=== PATIENT | female | born 1970 | race Two or more races ===

== ENCOUNTER 2017-07-05 12:50 | Emergency (ER) | payer OTHER ==
[~2017-07-05] VITALS: Ht 162.6 cm; Wt 113.4 kg
[~2017-07-05 12:50] MED LIST: ALPRAZOLAM0.5 MG PO; AMOXICILLIN500 MG ORAL; ATENOLOL25 MG ORAL; BACITRACIN15 GM TOPIC; FERROUS SULFAT325 MG ORAL; HYDROCHLOROTHIA25 MG PO; IBUPROFEN600 MG ORAL; LIPITOR20 MG ORAL; NORCO 5-325 TA1 EACH ORAL; PROZAC40 MG ORAL; TENORMIN25 MG PO; XANAX1 MG PO; ZESTRIL20 MG PO; ZOFRAN ODT4 MG ORAL
[2017-07-05] MEDS ORDERED: VITAMIN D1000 UNI1 ORAL (13:01)
[2017-07-05] MEDS ORDERED: NAPROSYN500 M1 ORAL (13:01)
[2017-07-05] MEDS ORDERED: Ketorolac 60mg Inj IM ONE (13:30)
--- NOTE | 2017-07-05 14:01 | Emergency Room Report ---
History of Present Illness General Chief Complaint: Lower Back Pain or Injury Source: Patient Present Illness HPI 46 YO Female presents to the ED C/O 08/16 in severity Low back pain that radiates down into the left leg. pt reports hx of herniated disk. pt states character of her pain is similar to previous exacerbations in the past. Denies trauma or fall. Denies Fevers, Chills, bruising, swelling, or erythema. Denies recent spinal procedure or hx of neoplastic disease. pt. reports she has had MRI in the past. 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 denies abdominal pain, denies hematuria, frequency or dysuria. Denies numbness tingling or loss of sensation or gross motor movements of the extremities, incontinence of bowel or bladder. Denies CP , Palpitations, LOC, AMS, dizziness, Changes in Vision, Sensation, paresthesias , or a sudden severe headache. Allergies: Coded Allergies: No Known Allergies (Unverified , 10/03/12) Patient History Past Medical History: see triage record Past Surgical History: none Pertinent Family History: none Last Menstrual Period: Three years ago Now: No Immunizations: UTD Reviewed Nursing Documentation: PMH: Agreed, PSxH: Agreed Nursing Documentation-PMH Hx Hypertension: Yes Hx Gastrointestinal Problems: Yes - gastritis Review of Systems All Other Systems: negative except mentioned in HPI Physical Exam Vital Signs Date Time Temp Pulse Resp B/P (MAP) Pulse Ox O2 Delivery O2 Flow Rate FiO2 07/05/17 12:56 98.4 95 16 120/77 97 Room Air Sp02 EP Interpretation: reviewed, normal General Appearance: no apparent distress, alert, GCS 15, non-toxic Head: normocephalic, atraumatic Eyes: bilateral eye normal inspection, bilateral eye PERRL ENT: hearing grossly normal, normal voice Neck: full range of motion Respiratory: lungs clear, normal breath sounds, speaking full sentences Cardiovascular #1: regular rate, rhythm Rectal: deferred Genitourinary: normal inspection, no CVA tenderness Musculoskeletal: back normal, gait/station normal, normal range of motion, tender - Left paraspinal , mainly gluteal ttp, no obvious deformities, no erythema, no masses. pain with straight leg raise. Neurologic: alert, oriented x3, responsive, motor strength/tone normal, sensory intact, speech normal Psychiatric: judgement/insight normal, memory normal, mood/affect normal Skin: normal color, no rash, warm/dry, well hydrated Medical Decision Making PA Attestation Dr. chris is my supervising Physician whom patient management has been discussed with. Diagnostic Impression: Primary Impression: Sciatica Qualified Codes: M54.32 - Sciatica, left side ER Course 46 YO Female presents to the ED C/O 08/16 in severity Low back pain that radiates down into the left leg. pt reports hx of herniated disk. pt states character of her pain is similar to previous exacerbations in the past. Denies trauma or fall. Denies Fevers, Chills, bruising, swelling, or erythema. Denies recent spinal procedure or hx of neoplastic disease. pt. reports she has had MRI in the past. 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 denies abdominal pain, denies hematuria, frequency or dysuria. Denies numbness tingling or loss of sensation or gross motor movements of the extremities, incontinence of bowel or bladder. Denies CP , Palpitations, LOC, AMS, dizziness, Changes in Vision, Sensation, paresthesias , or a sudden severe headache. Ddx considered but are not limited to Fracture, dislocation, contusion, epidural abscess, Sprain/Strain/Spasm Vital signs: are WNL, pt. is afebrile H&PE are most consistent with sciatica Pt. has pain with straight leg raise. ORDERS: X-ray not required at this time, no spinous process tenderness ED INTERVENTIONS: - Soma PO - IM Toradol Re-Evaluation: pt. states his pain has subsided with ED interventions DISCHARGE: At this time pt. is stable for d/c to home. Will provide printed patient care instructions, and any necessary prescriptions. Care plan and follow up instructions have been discussed with the patient prior to discharge. Last Vital Signs Date Time Temp Pulse Resp B/P (MAP) Pulse Ox O2 Delivery O2 Flow Rate FiO2 07/05/17 12:56 98.4 95 16 120/77 97 Room Air Disposition: HOME, SELF-CARE Condition: Stable Scripts Ibuprofen* (MOTRIN*) 600 Mg Tablet 600 MG ORAL THREE TIMES A DAY, #30 TAB 0 Refills Prov: Cynthia Moreno P.A. 07/05/17 Cyclobenzaprine Hcl* (FLEXERIL*) 10 Mg Tablet 10 MG ORAL THREE TIMES A DAY for 7 Days, #21 TAB Prov: Cynthia Moreno 07/05/17 Patient Instructions: Back Pain, Adult, Sciatica Additional Instructions: Take medications as directed. Follow up with a Primary Care Provider in 3-5 days, even if your symptoms have resolved. --Please review list of primary care clinics, if you do not already have a primary care provider Return sooner to ED if new symptoms occur, or current symptoms become worse. Do not drink alcohol, drive, or operate heavy machinery while taking muscle relaxers as this may cause drowsiness. - Please note that this Emergency Department Report was dictated using [employer] processor technology software, occasionally this can lead to erroneous entry secondary to interpretation by the dictation equipment. Cynthia Moreno Jul 05, 2017 14:01
[2017-07-05] MEDS ORDERED: CYCLOBENZAPRINE10 MG ORAL (14:02)
[2017-07-05] MEDS ORDERED: IBUPROFEN600 MG ORAL (14:02)
[2017-07-05 14:38] VITALS: BP 120/77
[2017-07-05 14:40] VITALS: BP 120/77
== END 2017-07-05 14:42 | disposition home or self-care (01) ==
LOC: EMR 14:30
DX: M54.32 Sciatica, left side (principal); I10 Essential (primary) hypertension
CPT/HCPCS: 96372; 99284

== ENCOUNTER 2018-02-25 15:05 | Emergency (ER) | payer OTHER ==
[~2018-02-25] VITALS: Ht 162.6 cm; Wt 99.8 kg
[~2018-02-25 15:05] MED LIST changes: +CYCLOBENZAPRINE10 MG ORAL; +NAPROSYN500 M1 ORAL; +VITAMIN D1000 UNI1 ORAL
[2018-02-25 15:23] VITALS: BP 128/78
[2018-02-25] MEDS ORDERED: Tetanus/Diptheria/Pertussis Vaccine 0.5ml Syr IM ONE (15:30)
[2018-02-25] MEDS ORDERED: Fluorescein Strips RIGHT EYE ONE (15:30)
[2018-02-25] MEDS ORDERED: Tetracaine 0.5% Opth 4ml Soln RIGHT EYE ONE (15:30)
[2018-02-25] MEDS ORDERED: Acetaminophen 500mg (ES) tab ORAL ONE (15:30)
--- NOTE | 2018-02-25 15:35 | Emergency Room Report ---
History of Present Illness General Chief Complaint: Eye Problems Present Illness HPI 47-year-old female patient presents to ER complaining of right eye burning and pain since "few days ago". Patient denies exposure to any chemicals in her eyes. Denies history of injury. Reports eye discharge. Reports wears contacts. Does not know tetanus vaccination status. Denies pain with eye movement denies periorbital swelling or edema. Denies fever, chest pain, shortness of breath. Denies loss of vision. Denies history of STI. Allergies: Coded Allergies: No Known Allergies (Unverified , 10/03/12) Patient History Past Medical History: see triage record Reviewed Nursing Documentation: PMH: Agreed; PSxH: Agreed Nursing Documentation-PMH Hx Hypertension: Yes Hx Gastrointestinal Problems: Yes - gastritis Review of Systems All Other Systems: negative except mentioned in HPI Physical Exam Vital Signs Date Time Temp Pulse Resp B/P (MAP) Pulse Ox O2 Delivery O2 Flow Rate FiO2 02/25/18 15:09 98.1 86 18 128/78 97 Room Air 98.1 Sp02 EP Interpretation: reviewed, normal General Appearance: well appearing, no apparent distress, alert, GCS 15, non- toxic Head: normocephalic, atraumatic Eyes: right eye fluoroscene uptake - 1-2mm area uptake in pupil, right eye Scleral Injection; bilateral eye normal inspection, bilateral eye PERRL, bilateral eye other - no foreign body, no rust ring ENT: hearing grossly normal, normal pharynx, no angioedema, normal voice, uvula midline, moist mucus membranes Neck: full range of motion Respiratory: lungs clear, normal breath sounds, no rhonchi, no respiratory distress, no accessory muscle use, no wheezing, speaking full sentences Cardiovascular #1: regular rate, rhythm, no edema Musculoskeletal: back normal, digits/nails normal, gait/station normal, normal range of motion, non-tender Neurologic: alert, oriented x3, responsive, motor strength/tone normal, sensory intact Psychiatric: mood/affect normal Skin: no rash Lymphatic: no adenopathy Medical Decision Making PA Attestation Dr. Willett is my supervising Physician whom patient management has been discussed with. Diagnostic Impression: Primary Impression: Corneal abrasion due to contact lens ER Course Pt. presents to the ED c/o eye pain. Ddx considered but are not limited to FB in eye, corneal abrasion, corneal ulcer , blepharitis, subconjunctival hemorrhage. Patient has no signs of surrounding cellulitis, no pain with eye movement, does not require imaging at this time. Vital signs: are WNL, pt. is afebrile See nurse's report for visual acuity, follow up with stainless steel finisher for further evaluation and treatment. Do not wear contacts during this time. ORDERS: Ophthalmic Tetracaine. Fluorescein stain of right eye. ED INTERVENTIONS: Tylenol provided in ED. TDaP provided. No FB visible, no rust ring, no dendritic lesions. Fluorescein stain shows increased uptake in right eye. Do not wear contacts, wear glasses. Followup with process laboratory specialist in 1-2 days. Patient seen and evaluated by Dr. Willett, agrees with treatment plan. DISCHARGE: - Rx provided for OCUFLOX, place 2 drops in affected eye TID for 7 days At this time pt. is stable for d/c to home. Patient resting comfortably in no distress, nontoxic-appearing, smiling and laughing Will provide printed patient care instructions and any necessary prescriptions. Care plan and follow up instructions have been discussed with the patient prior to discharge Follow-up with drug abuse counselor in 24 hours. Follow-up with primary care provider. Take medications as directed. Patient questions asked and answered. ER precautions given, patient instructed to return to ER immediately for any new or worsening of symptoms. Last Vital Signs Date Time Temp Pulse Resp B/P (MAP) Pulse Ox O2 Delivery O2 Flow Rate FiO2 02/25/18 15:23 98.1 18 128/78 97 Room Air 98.1 02/25/18 15:09 86 Disposition: HOME, SELF-CARE Condition: Stable Scripts Ofloxacin (OCUFLOX) 5 Ml Drops 2 DROP OP TID for 7 Days, ML Prov: Ed Morales 02/25/18 Patient Instructions: Corneal Abrasion, [id number] Additional Instructions: Followup with primary care provider in 3 -5 days. Follow-up with process laboratory specialist in 1-2 days. Do not wear contacts. Take medications as directed. Patient questions asked and answered. ER precautions given, patient instructed to return to ER immediately for any new or worsening of symptoms. Ed Morales Feb 25, 2018 15:35
[2018-02-25] MEDS ORDERED: OCUFLOX5 ML OP (16:00)
== END 2018-02-25 16:53 | disposition home or self-care (01) ==
LOC: EMR 15:55
DX: H18.821 Corneal disorder due to contact lens, right eye (principal); Z23 Encounter for immunization; I10 Essential (primary) hypertension
CPT/HCPCS: 90471; 90715; 99283

== ENCOUNTER 2018-05-20 13:32 | Emergency (ER) | payer OTHER ==
[~2018-05-20] VITALS: Ht 162.6 cm; Wt 83.9 kg
[~2018-05-20 13:32] MED LIST changes: +OCUFLOX5 ML OP
[2018-05-20 14:03] VITALS: BP 96/60
[2018-05-20] MEDS ORDERED: Dexamethasone 4mg/ml vial IM ONE (14:30)
[2018-05-20] MEDS ORDERED: HYDROCORTISONE30 G2 TP (14:32)
[2018-05-20] MEDS ORDERED: BENADRYL25 MG ORAL (14:32)
--- NOTE | 2018-05-20 14:33 | Emergency Room Report ---
History of Present Illness General Chief Complaint: Skin Rash/Abscess Source: Patient Present Illness HPI 47-year-old female patient presents ER complaining of rash on back and abdomen for the past 4 days. reports rash is itchy, denies burning or pain. Reports he is not taking any medications. Denies history of systemic disease. Denies new drugs or drug use. Denies history of tampon use. Denies history of systemic disease, denies lupus. Denies history of chronic skin condition. Denies fever , chest pain, shortness breath, intractable vomiting, other acute symptoms. Allergies: Coded Allergies: No Known Allergies (Unverified , 10/03/12) Patient History Past Medical History: see triage record Last Menstrual Period: menopause Reviewed Nursing Documentation: PMH: Agreed; PSxH: Agreed Nursing Documentation-PMH Past Medical History: No History, Except For Hx Hypertension: Yes Hx Gastrointestinal Problems: Yes - gastritis History Of Psychiatric Problem: Yes - Anxiety Review of Systems All Other Systems: negative except mentioned in HPI Physical Exam Vital Signs Date Time Temp Pulse Resp B/P (MAP) Pulse Ox O2 Delivery O2 Flow Rate FiO2 05/20/18 13:56 97.8 88 15 96/60 97 Room Air 97.9 Sp02 EP Interpretation: reviewed, normal General Appearance: well appearing, no apparent distress, alert, GCS 15, non- toxic Head: normocephalic, atraumatic Eyes: bilateral eye normal inspection, bilateral eye PERRL ENT: hearing grossly normal, normal pharynx, no angioedema, normal voice, uvula midline, moist mucus membranes Neck: full range of motion Respiratory: lungs clear, normal breath sounds, no rhonchi, no respiratory distress, no accessory muscle use, no wheezing, speaking full sentences Cardiovascular #1: regular rate, rhythm, no edema Gastrointestinal: non tender, soft, no mass, non-distended, no guarding, no rebound Genitourinary: no CVA tenderness Musculoskeletal: back normal, digits/nails normal, gait/station normal, normal range of motion, non-tender Psychiatric: mood/affect normal Skin: rash - abdomen and back: erythematous plaque, diffuse and itnermittent, no central clearing, no vesicles, no scalloped borders, no blistering, no open lesions or wounds, no fluctuance or induration, no satellitle lesions Medical Decision Making PA Attestation Dr. Uribe is my supervising Physician whom patient management has been discussed with. Diagnostic Impression: Primary Impression: Rash and other nonspecific skin eruption ER Course Pt. presents to the ED c/o rash. Ddx considered but are not limited to atopic dermatitis, scabies, shingles, hives, urticaria, angiodema, allergic reaction, impetigo. Vital signs: are WNL, pt. is afebrile Ordered medication. ER COURSE physical exam consistent with possible contact dermatitis versus hives. Provided patient with Benadryl and Decadron in ER. Followup with dermatology further treatment and evaluation. Followup with PCP to rule out possible systemic or autoimmune pathology. Patient nontoxic-appearing, no fever, vital signs stable, patient does not require labs at this time. Low suspicion for infectious cause. No skin sloughing, nontoxic appearing, no recent abx use, no recent drug use, low suspicion for SJS ER precautions given. patient will be driven home by her . Patient resting comfortably in no acute distress. DISCHARGE: -Rx given for Benadryl for pruritis. side effect of drowsiness, do not take prior to drinking, driving, operating any machinery. -Rx given for Hydrocortisone At this time pt. is stable for d/c to home. Patient resting comfortably, in no acute distress, nontoxic appearing, smiling and laughing and playing on his phone. Will provide printed patient care instructions, and any necessary prescriptions. Care plan and follow up instructions have been discussed with the patient prior to discharge. Patient provided with list of healthcare clinics to establish primary care physician. Patient instructed to follow-up with primary care provider in 3 - 5 days. Patient questions asked and answered. ER precautions given. Patient instructed to return to ER immediately for any new or worsening of symptoms including but not limited to increasing SOB, persistent fever. - Please note that this Emergency Department Report was dictated using [employer] department worker technology software, occasionally this can lead to erroneous entry secondary to interpretation by the dictation equipment. Last Vital Signs Date Time Temp Pulse Resp B/P (MAP) Pulse Ox O2 Delivery O2 Flow Rate FiO2 05/20/18 14:03 97.9 78 15 96/60 97 Room Air 97.9 Disposition: HOME, SELF-CARE Condition: Stable Scripts Hydrocortisone (Hydrocortisone Cream 2.5%) Y Cream.appl 1 APPLIC TP BID for 7 Days, #28 GM Prov: Ed Morales 05/20/18 Diphenhydramine Hcl* (BENADRYL*) 25 Mg Capsule 25 MG ORAL Q12HR PRN for Itching, #30 CAP Prov: Ed Morales 05/20/18 Referrals: [facility],REFERRING (PCP) Patient Instructions: Rash Additional Instructions: Followup with primary care provider in 3 -5 days. Take medications as directed. SE drowsiness, do not take prior to drinking, driving, operating heavy machinery. Apply small amount of cream to affected areas. Do not apply to face. Patient questions asked and answered. ER precautions given, patient instructed to return to ER immediately for any new or worsening of symptoms. Ed Morales May 20, 2018 14:33
[2018-05-20 14:45] VITALS: BP 96/60
== END 2018-05-20 14:46 | disposition home or self-care (01) ==
LOC: EMR 14:25
DX: R21 Rash and other nonspecific skin eruption (principal)
CPT/HCPCS: 96372; 99284; J1100

== ENCOUNTER 2019-03-24 21:51 | Emergency (ER) | payer OTHER ==
[~2019-03-24] VITALS: Ht 165.1 cm; Wt 108.9 kg
[~2019-03-24 21:51] MED LIST changes: +BENADRYL25 MG ORAL; +HYDROCORTISONE30 G2 TP
--- NOTE | 2019-03-24 22:11 | NUR ---
ED Nurse Note: Pt states her BP is low for recent 3 days, nausea and vomited 1 times yesterday. Pt feels dizzy, weakness and headache. Pt is taking HTN meds fot her treatment. BP is 109/68 while triage.
--- NOTE | 2019-03-24 22:20 | NUR ---
ED Nurse Note: IV ACCESS ESTABLISHED. BLOOD AND URINE COLLECTED; SENT DOWN TO LAB.
[2019-03-24 22:28] VITALS: BP 134/88
--- NOTE | 2019-03-24 22:33 | Emergency Room Report ---
History of Present Illness General Chief Complaint: Generalized Weakness Source: Patient Present Illness HPI Is a 48-year-old female with history of high blood pressure. She presents with chief complaint of weakness and low blood pressure. Onset for last couple days. There is no change in her medication. She said that she is feeling weak and her blood pressure been running in the low 100 systolic. She's also has diaphoresis and a couple episode vomiting. Does have some diffuse mild abdominal pain. Eating drinking normally. No fever. Mild cough for the last couple weeks. Denies any other complaint. Denies any urinary complaint. Allergies: Coded Allergies: No Known Allergies (Unverified , 10/03/12) Patient History Past Medical History: see triage record, old chart reviewed, HTN Past Surgical History: other Pertinent Family History: none Social History: Denies: smoking Last Menstrual Period: stop 7 years ago Now: No Immunizations: other Reviewed Nursing Documentation: PMH: Agreed; PSxH: Agreed Nursing Documentation-PMH Hx Hypertension: Yes Hx Gastrointestinal Problems: Yes - gastritis Review of Systems Constitutional: Reports: malaise, weakness Eye: Denies: eye pain, blurred vision ENT: Denies: ear pain, nose congestion, throat swelling Respiratory: Denies: cough, shortness of breath Cardiovascular: Denies: chest pain, palpitations Gastrointestinal: Reports: abdominal pain, nausea, vomiting; Denies: diarrhea Musculoskeletal: Denies: back pain, joint pain Skin: Denies: rash Neurological: Denies: headache, numbness Endocrine: Denies: increased thirst, increased urine Hematologic/Lymphatic: Denies: easy bruising All Other Systems: negative except mentioned in HPI Physical Exam Vital Signs Date Time Temp Pulse Resp B/P (MAP) Pulse Ox O2 Delivery O2 Flow Rate FiO2 03/24/19 21:59 97.9 93 20 97 Room Air 03/24/19 22:28 134/88 vitals normal Sp02 EP Interpretation: reviewed, normal General Appearance: well appearing, no apparent distress, alert, obese Head: normocephalic, atraumatic Eyes: bilateral eye PERRL, bilateral eye EOMI ENT: hearing grossly normal, normal pharynx Neck: full range of motion, supple, no meningismus Respiratory: chest non-tender, lungs clear, normal breath sounds Cardiovascular #1: regular rate, rhythm, no murmur Gastrointestinal: normal bowel sounds, no mass, no organomegaly, no bruit, non- distended, tenderness - Mild, diffuse Musculoskeletal: back normal, gait/station normal, normal range of motion Neurologic: alert, oriented x3 Psychiatric: mood/affect normal Skin: warm/dry Medical Decision Making Diagnostic Impression: Primary Impression: Abdominal pain Qualified Codes: R10.84 - Generalized abdominal pain Additional Impressions: UTI (urinary tract infection) Qualified Codes: N30.00 - Acute cystitis without hematuria Hypokalemia ER Course Patient presents with low blood pressure. Been running normal here. No evidence of sepsis. She does have abdominal pain but no evidence of acute abdomen. May be beginning of enteritis. No discharge home. Urinalysis showed possible infection. We'll put on antibiotics. Rhythm Strip Diag. Results EP Interpretation: yes Rate: 88 Rhythm: NSR, no PVC's, no ectopy CT/MRI/US Diagnostic Results CT/MRI/US Diagnostic Results : Imaging Test Ordered: CT abdomen and pelvis Impression Read by radiologist. Trace fat stranding around a few nondilated loop of small bowel's in the mid abdomen. Last Vital Signs Date Time Temp Pulse Resp B/P (MAP) Pulse Ox O2 Delivery O2 Flow Rate FiO2 03/24/19 22:31 93 20 Room Air 03/24/19 22:28 97.9 134/88 97 Status: improved Disposition: HOME, SELF-CARE Condition: Stable Scripts Potassium Chloride* (K-DUR*) 10 Meq Capsule.er 10 MEQ ORAL DAILY, #30 TAB 0 Refills Prov: Tom Leon MD 03/24/19 Nitrofurantoin Monohyd/M-Cryst* (MACROBID 100 MG*) 100 Mg Capsule 100 MG ORAL EVERY 12 HOURS, #14 CAP Prov: Tom Leon MD 03/24/19 Patient Instructions: Weakness Additional Instructions: Increase fluid. Follow-up with your doctor in 7 days. Return if worse. Tom Leon MD March 24, 2019 22:33
[2019-03-24 22:44] LABS: APPEARANCE,URINE CLOUDY; BASOPHILS % (AUTO) 0.6 % (0.0-2.0); BILIRUBIN, URINE NEGATIVE (NEGATIVE); EOSINOPHILS % (AUTO) 1.2 % (0.0-3.0); GLUCOSE, URINE (UA) NEGATIVE (NEGATIVE); HEMATOCRIT 36.3 % (37.0-47.0); HEMOGLOBIN 12.3 G/DL (12.0-16.0); KETONES,URINE NEGATIVE (NEGATIVE); LEUKOCYTE ESTERASE ,URINE 1+ (NEGATIVE); LYMPHOCYTES % (AUTO) 29.6 % (20.0-45.0); MEAN CORPUSCULAR VOLUME 82 FL (80-99); MONOCYTES % (AUTO) 5.7 % (1.0-10.0); NITRITE,URINE NEGATIVE (NEGATIVE); PH,URINE 7 (4.5-8.0); PLATELET COUNT 305 K/UL (150-450); PROTEIN,URINE NEGATIVE (NEGATIVE); RED BLOOD COUNT 4.41 M/UL (4.20-5.40); RED CELL DISTRIBUTION WIDTH 13.8 % (11.6-14.8); UROBILINOGEN,URINE 4 MG/DL (0.0-1.0); WHITE BLOOD COUNT 10.2 K/UL (4.8-10.8)
[2019-03-24 22:45] LABS: COLOR,URINE YELLOW
[2019-03-24 22:48] LABS: ANION GAP 8 mmol/L (5-15); BLOOD UREA NITROGEN 12 mg/dL (7-18); CALCIUM 9.1 MG/DL (8.5-10.1); CARBON DIOXIDE 32 MMOL/L (21-32); CHLORIDE 96 MMOL/L (98-107); CREATININE 0.8 MG/DL (0.55-1.30); SODIUM 136 MMOL/L (136-145)
[2019-03-24 22:53] LABS: ALANINE AMINOTRANSFERASE 25 U/L (12-78); ALBUMIN 3.7 G/DL (3.4-5.0); ALBUMIN/GLOBULIN RATIO 0.8 (1.0-2.7); ALKALINE PHOSPHATASE 132 U/L (46-116); ASPARTATE AMINO TRANSFERASE 13 U/L (15-37); BILIRUBIN,TOTAL 0.3 MG/DL (0.2-1.0)
[2019-03-24] MEDS ORDERED: POTASSIUM CHLO10 MEQ ORAL (23:33)
[2019-03-24] MEDS ORDERED: NITROFURANTOIN100 M2 ORAL (23:33)
[2019-03-24 23:43] VITALS: BP 136/84
[2019-03-24 23:45] VITALS: BP 136/84
--- NOTE | 2019-03-24 23:45 | NUR ---
ER DISCHARGE NOTE: Patient is cleared to be discharged per ERMD, pt is aox4, on room air, with stable vital signs. accompanied by family member. pt was given dc and prescription instructions, pt was able to verbalize understanding, pt id band and iv site removed without complications. pt is able to ambulate with steady gait. pt took all belongings.
--- NOTE | 2019-03-25 09:46 | Diagnostic Imaging Report ---
Indication: Abdominal pain Technique: Continuous helical transaxial imaging of the abdomen and pelvis was obtained from the lung bases to the pubic symphysis. No intravenous contrast was administered. Coronal 2-D reformats were also obtained. Automatic Exposure Control was utilized. Total Dose length Product (DLP): 1085.[address] Dose Index Volume (CTDIvol): 19.07 mGy Comparison: 11/18/[address] abdomen pelvis Findings: The lung bases are clear suggestion of stones versus sludge in the gallbladder. There is a left adrenal nodule measuring about 2 x 1.5 cm. Recommend evaluation with MRI. The nodule has increased in size since 2010. The liver shows moderate fatty infiltration on the prior occasion. Currently attenuation is within normal limits. Evaluation of solid organs is limited on this study done without IV contrast. There are diverticula in the colon without diverticulitis. Appendix is normal. There is no obvious ascites. There is IUD present. There is a cystic lesion on the left adnexa probably ovarian in nature measuring 3.6 x 3.2 cm. Bladder is nondistended. Image quality is limited and degraded due to body habitus. Degenerative disc disease in lower lumbar spine and multiple levels of facet arthropathy also noted. Minimal L5 on S1 anterolisthesis noted. IMPRESSION: No acute findings appreciated. Limited evaluation due to body habitus and nonadministration of contrast material. 2 x 1.5 cm left adrenal nodule having shown interval enlargement since 2009. Evaluation with MRI suggested. Suggestion of gallstones versus sludge. Diverticulosis of the colon. No definite diverticulitis. Normal appendix. 3.6 x 3.2 cm left adnexal mass possibly cystic. Consider ultrasound evaluation. IUD. Degenerative changes of the lower lumbar spine. Minimal L5 on S1 anterolisthesis. [facility] has communicated the preliminary results to the Emergency Department. Their findings are largely concordant with this report. The CT scanner at [facility] is accredited by the [employer] and the scans are performed using dose optimization techniques as appropriate to a performed exam including Automatic Exposure control.
== END 2019-03-24 23:45 | disposition home or self-care (01) ==
LOC: EMR 23:00
DX: R10.84 Generalized abdominal pain (principal); N30.00 Acute cystitis without hematuria; E87.6 Hypokalemia; R11.10 Vomiting, unspecified; I10 Essential (primary) hypertension; E66.9 Obesity, unspecified; Z68.39 Body mass index [BMI] 39.0-39.9, adult
CPT/HCPCS: 36415; 74176; 80053; 81001; 84484; 85025; 96360; 99284